=== PATIENT | male | born 2000 ===

== ENCOUNTER 2023-09-26 16:43 | Emergency (ER) | payer OTHER ==
[~2023-09-26] VITALS: Ht 175.3 cm; Wt 63.6 kg
[2023-09-26 17:05] VITALS: BP 124/69; PULSE 100; RESP 16; TEMP 98.5
[2023-09-26] MEDS ORDERED: OFLO5DRO49 OS (18:05)
== END 2023-09-27 02:13 | disposition home or self-care (01) ==
LOC: EMS 16:45
DX: H10.89 Other conjunctivitis (principal); F12.90 Cannabis use, unspecified, uncomplicated
CPT/HCPCS: 99283; Z7502